=== PATIENT | female | born 1955 | race Caucasian/White ===

== ENCOUNTER 2018-01-20 12:39 | Day surgery (SDC) | payer OTHER ==
[2018-01-20] MEDS ORDERED: MIDAZOLAM 1 MG/ML 2 ML INJ ×3 (15:42→15:43)
[2018-01-20] MEDS ORDERED: FENTAnyl 50 MCG/ML VIAL (15:43)
== END 2018-01-20 18:31 | disposition home or self-care (01) ==
LOC: GIL 12:39
DX: R19.4 Change in bowel habit (principal); K29.50 Unspecified chronic gastritis without bleeding; D12.5 Benign neoplasm of sigmoid colon; K44.9 Diaphragmatic hernia without obstruction or gangrene; K21.9 Gastro-esophageal reflux disease without esophagitis
CPT/HCPCS: 43239; 88305; 88312